=== PATIENT | male | born 1990 | race Two or more races ===

== ENCOUNTER 2018-12-11 09:15 | Emergency (ER) | payer OTHER ==
[~2018-12-11] VITALS: Ht 172.7 cm; Wt 78.9 kg
[2018-12-11] MEDS ORDERED: IBUPROFEN 600 MG TABLET PO ONE ×3 (09:30→09:42)
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
--- NOTE | 2018-12-11 09:52 | NUR ---
PAZ ZAMORA AT BEDSIDE TOOK PATIENT FOR CT SCAN
--- NOTE | 2018-12-11 10:50 | NUR ---
Patient discharged to home in stable condition. Written and verbal after care instructions given. Patient verbalizes understanding of instruction.
[2018-12-11 10:51] VITALS: BP 144/70
== END 2018-12-11 10:52 | disposition home or self-care (01) ==
LOC: ER 09:15
DX: R51 Headache (principal); M54.2 Cervicalgia; M25.511 Pain in right shoulder; M25.512 Pain in left shoulder; R10.9 Unspecified abdominal pain; R07.89 Other chest pain; V49.49XA Driver injured in collision with other motor vehicles in traffic accident, initial encounter; Y93.89 Activity, other specified; Y92.413 State road as the place of occurrence of the external cause; Y99.8 Other external cause status
CPT/HCPCS: 71045-TC; 72040-TC; 72074-TC; 72100-TC; 73030-TC

== ENCOUNTER 2020-03-09 16:38 | Emergency (ER) | payer OTHER ==
[~2020-03-09] VITALS: Ht 167.6 cm; Wt 79.4 kg
[2020-03-09 16:55] VITALS: BP 134/77
[2020-03-09] MEDS ORDERED: TDAP [DIPH/PERTUSSIS/TET] 0.5 ML VIAL IM ONE ×2 (17:30→17:31)
[2020-03-09] MEDS ORDERED: IBUPROFEN 400 MG TABLET PO ONE (17:30)
[2020-03-09] MEDS ORDERED: IBUPROFEN 400 MG TABLET ONE (17:31)
== END 2020-03-09 19:22 | disposition home or self-care (01) ==
LOC: ER 16:43
DX: S00.83XA Contusion of other part of head, initial encounter (principal); S01.511A Laceration without foreign body of lip, initial encounter; Y04.2XXA Assault by strike against or bumped into by another person, initial encounter; Y92.410 Unspecified street and highway as the place of occurrence of the external cause; Z20.828 Contact with and (suspected) exposure to other viral communicable diseases; R03.0 Elevated blood-pressure reading, without diagnosis of hypertension
CPT/HCPCS: 70110; 90471; 90715; 99284; C9803; U0003